=== PATIENT | male | born 1955 | race Caucasian/White ===

== ENCOUNTER 2016-09-12 16:00 | Day surgery (SDC) | END 2016-09-12 21:42 | disposition home or self-care (01) | DX: S93.325D Dislocation of tarsometatarsal joint of left foot, subsequent encounter (principal); X58.XXXD Exposure to other specified factors, subsequent encounter; E09.42 Drug or chemical induced diabetes mellitus with neurological complications with diabetic polyneuropathy; I10 Essential (primary) hypertension; E78.5 Hyperlipidemia, unspecified | CPT/HCPCS: 28465; 73610; 73630; 82962; J0131; J0690; J1100; J1170; J1885; J2250; J2405; J2765; J2795; J3010 ==